=== PATIENT | female | born 1990 | race Caucasian/White ===

== ENCOUNTER 2016-03-09 09:24 | Emergency (ER) | payer OTHER ==
[~2016-03-09] VITALS: Ht 160 cm; Wt 83.0 kg
[2016-03-09 09:25] VITALS: BP 136/74; PULSE 120; RESP 16; TEMP 98.2; O2SAT 99
[2016-03-09] MEDS ORDERED: SODIUM CHLORIDE 0.9% FLUSH 5 ML FLUSH IVF PRN (09:45)
[2016-03-09 09:57] VITALS: BP 115/68; PULSE 96; RESP 16; O2SAT 100
[2016-03-09 09:57] LABS: AUTOMATED NEUTROPHIL # 5.5 TH/MM3 (1.8-7.7); BASOPHIL # 0.1 TH/MM3 (0-0.2); BASOPHIL % 0.7 % (0.0-2.0); EOSINOPHIL # 0.1 TH/MM3 (0-0.4); EOSINOPHIL % 1.6 % (0.0-4.0); HEMATOCRIT 42.2 % (35.0-46.0); HEMO FLAGS DIFF FINAL; LYMPH % 28.6 % (9.0-44.0); LYMPHOCYTE # 2.4 TH/MM3 (1.0-4.8); MEAN CELL VOLUME 88.3 FL (80.0-100.0); MEAN CORPUSCULAR HEMOGLOBIN 30.1 PG (27.0-34.0); MEAN CORPUSCULAR HGB CONC 34.1 % (32.0-36.0); NEUT % 64.1 % (16.0-70.0); PLATELET COUNT 400 TH/MM3 (150-450); RED BLOOD COUNT 4.78 MIL/MM3 (4.00-5.30); RED CELL DISTRIBUTION WIDTH 13.4 % (11.6-17.2); WHITE BLOOD COUNT 8.5 TH/MM3 (4.0-11.0)
--- NOTE | 2016-03-09 10:04 | PD ---
HPI Chief Complaint: Abdominal Pain Time Seen by Provider: 10:03 Travel History International Travel<30 days: No Contact w/Intl Traveler<30days: No Traveled to known affect area: No History of Present Illness HPI 25-year-old female with history of no significant past medical issues, presents to the ER today because she states that she has had several days' history of abdominal cramping pains and passing red blood per rectum. She thinks maybe about half a cup. She denies any chest pains, nausea, vomiting, shortness of breath, or any other symptoms. She has not noticed any black stools. She does not know any bad food exposure or sick contacts. Modifying Factors: None Associated Signs & Symptoms: Bright red blood per rectum, cramping abdominal pain Risk Factors: None PFSH Past Medical History ?: Unknown Past Surgical History Section: Yes Social History Alcohol Use: No Tobacco Use: Yes (1-2 cigarettes a day) Substance Use: No Allergies-Medications (Allergen,Severity, Reaction): Coded Allergies: No Known Allergies (Unverified , 03/09/16) Reported Meds & Prescriptions Reported Meds & Active Scripts Active No Active Prescriptions or Reported Medications Review of Systems Except as stated in HPI: all other systems reviewed are Neg Physical Exam Narrative GENERAL: Well-nourished, well-developed young -[place] female patient in no acute distress. SKIN: Warm and dry. HEAD: Normocephalic. EYES: No scleral icterus. No injection or drainage. NECK: Supple, trachea midline. CARDIOVASCULAR: Regular rate and rhythm without murmurs, gallops, or rubs. RESPIRATORY: Breath sounds equal bilaterally. No accessory muscle use. GASTROINTESTINAL: Abdomen soft, non-tender, nondistended. Benign. RECTAL EXAM: No masses or tenderness, stool is brown. Hemoccult negative. MUSCULOSKELETAL: No cyanosis, or edema. BACK: Nontender without obvious deformity. No CVA tenderness. Data Data Last Documented VS Vital Signs Date Time Temp Pulse Resp B/P Pulse Ox O2 Delivery O2 Flow Rate FiO2 03/09/16 09:57 96 16 115/68 100 Room Air 03/09/16 09:25 98.2 Orders Complete Blood Count With Diff (03/09/16 09:44) Comprehensive Metabolic Panel (03/09/16 09:44) Lipase (03/09/16 09:44) Iv Access Insert/Monitor (03/09/16 09:44) Ecg Monitoring (03/09/16 09:44) Oximetry (03/09/16 09:44) Sodium Chloride 0.9% Flush (Ns Flush) (03/09/16 09:45) Ed Urine Pregnancytest Poc (03/09/16 09:44) Labs Laboratory Tests Test 03/09/16 09:48 White Blood Count 8.5 TH/MM3 Red Blood Count 4.78 MIL/MM3 Hemoglobin 14.4 GM/DL Hematocrit 42.2 % Mean Corpuscular Volume 88.3 FL Mean Corpuscular Hemoglobin 30.1 PG Mean Corpuscular Hemoglobin 34.1 % Concent Red Cell Distribution Width 13.4 % Platelet Count 400 TH/MM3 Mean Platelet Volume 7.1 FL Neutrophils (%) (Auto) 64.1 % Lymphocytes (%) (Auto) 28.6 % Monocytes (%) (Auto) 5.0 % Eosinophils (%) (Auto) 1.6 % Basophils (%) (Auto) 0.7 % Neutrophils # (Auto) 5.5 TH/MM3 Lymphocytes # (Auto) 2.4 TH/MM3 Monocytes # (Auto) 0.4 TH/MM3 Eosinophils # (Auto) 0.1 TH/MM3 Basophils # (Auto) 0.1 TH/MM3 CBC Comment DIFF FINAL Differential Comment Sodium Level 140 MEQ/L Potassium Level 3.8 MEQ/L Chloride Level 105 MEQ/L Carbon Dioxide Level 27.1 MEQ/L Anion Gap 8 MEQ/L Blood Urea Nitrogen 10 MG/DL Creatinine 0.86 MG/DL Estimat Glomerular Filtration 79 ML/MIN Rate Random Glucose 98 MG/DL Calcium Level 9.3 MG/DL Total Bilirubin 0.3 MG/DL Aspartate Amino Transf 19 U/L (AST/SGOT) Alanine Aminotransferase 29 U/L (ALT/SGPT) Alkaline Phosphatase 109 U/L Total Protein 8.7 GM/DL Albumin 4.2 GM/DL Lipase 119 U/L MDM Medical Decision Making Medical Screen Exam Complete: Yes Emergency Medical Condition: Yes Medical Record Reviewed: Yes Interpretation(s) Laboratory Tests Test 03/09/16 09:48 Estimat Glomerular Filtration 79 ML/MIN (>89) Rate Total Protein 8.7 GM/DL (6.4-8.2) Differential Diagnosis Bright red blood per rectum, abdominal cramping painsgastroenteritis versus colitis versus GI bleeding versus hemorrhoidal bleeding Narrative Course H&H is stable. Vital signs are stable. Abdomen is benign and I do not suspect an acute intra-abdominal process. Her rectal exam is essentially unremarkable with no obvious signs of bleeding. Hemoccult is negative. At this point, my plan would be to release her with follow-up to primary care physician and GI. Return for any worsening in bleeding or abdominal pain or new issues as needed. The plan has been discussed with her and she states understanding. [facility] Point of Care Internal Pos. & Neg. Controls: Passed Fecal Specimen Occult Blood: Negative Diagnosis Primary Impression: Rectal bleeding Scripts No Active Prescriptions or Reported Meds Disposition: DISCHARGE HOME Condition: Stable Nickolas Garcia MD Mar 09, 2016 10:04
[2016-03-09 10:12] LABS: ALT (GPT) 29 U/L (10-53); ANION GAP 8 MEQ/L (5-15); AST (GOT) 19 U/L (15-37); BICARBONATE 27.1 MEQ/L (21.0-32.0); BLOOD UREA NITROGEN 10 MG/DL (7-18); CHLORIDE 105 MEQ/L (98-107); GLOMERULAR FILTRATION RATE 79 ML/MIN (>89); POTASSIUM 3.8 MEQ/L (3.5-5.1); SODIUM (NA) 140 MEQ/L (136-145)
[2016-03-09 10:15] LABS: ALKALINE PHOSPHATASE 109 U/L (45-117); TOTAL BILIRUBIN ADULT 0.3 MG/DL (0.2-1.0)
[2016-03-09 11:10] VITALS: BP 115/68
== END 2016-03-09 11:35 | disposition home or self-care (01) ==
LOC: NEPA 09:24
DX: K62.5 Hemorrhage of anus and rectum (principal)
CPT/HCPCS: 80053; 83690; 84703; 85025; 99284